=== PATIENT | female | born 2000 | race Caucasian/White ===

== ENCOUNTER → 2023-04-18 11:15 | Outpatient (BNVA) | payer OTHER, SELFPAY | PROVIDERS: Visit Provider Physician Assistant Medical | DX: S67.190A Crushing injury of right index finger, initial encounter (principal); W31.89XA Contact with other specified machinery, initial encounter | CPT/HCPCS: 73140; 99204 ==

== ENCOUNTER → 2023-05-01 09:28 | Outpatient (BNVA) | payer OTHER, SELFPAY | PROVIDERS: Visit Provider Physician Assistant Medical | DX: S67.190D Crushing injury of right index finger, subsequent encounter (principal); W31.89XD Contact with other specified machinery, subsequent encounter | CPT/HCPCS: 99213 ==

== ENCOUNTER → 2023-05-15 09:14 | Outpatient (BNVA) | payer OTHER, SELFPAY | PROVIDERS: Visit Provider Physician Assistant Medical | DX: S67.190D Crushing injury of right index finger, subsequent encounter (principal); W31.89XD Contact with other specified machinery, subsequent encounter | CPT/HCPCS: 99213 ==

== ENCOUNTER → 2023-06-05 09:24 | Outpatient (BNVA) | payer OTHER, SELFPAY | PROVIDERS: Visit Provider Physician Assistant Medical | DX: M79.644 Pain in right finger(s) (principal) | CPT/HCPCS: 99213 ==